=== PATIENT | female | born 1980 | race Caucasian/White ===

== ENCOUNTER 2017-03-11 16:35 | Inpatient (IN) | payer OTHER ==
[~2017-03-11] VITALS: Ht 162.6 cm; Wt 73.5 kg
--- NOTE | 2017-03-11 17:05 | History & Physical ---
General Information and HPI MD Statement: I have seen and personally examined SALLY KWONG and documented this H&P. The patient is a 36 year old female at [38] weeks and [6] days gestation who presented with a chief complaint of [ 6 cm dilated and ctxs]. Source of Information: patient Exam Limitations: no limitations History of Present Illness: 36yo, 38 6/7wks, she was seen in office today, was found cervix was 6 cm dialted. pt c/o she ahd some ctxs, but not regular. reports +FM, BPP 04/05 today. care started at 8+ wks, she had short cervix in the 2nd trimester, she received course of steroids. elevated GCT, normal GTT. GBS positive. Allergies/Medications Allergies: Coded Allergies: No Known Allergies (03/11/17) Past History nursing techn History : 2 Para: 1 Last Menstrual Period: 06/12/2016 Estimated Delivery Date: 03/19/2017 Past nursing techn History: non-contributory Past Pregnancies Past Pregnancies: Date of Delivery: 11/09/2011 Gestational Age: 39wks Weight: 6lb9oz Type of Delivery: vaginal Complications: none Medical History Blood Transfusion Hx: No Neurological: NONE EENT: NONE Cardiovascular: NONE Respiratory: NONE Gastrointestinal: NONE Hepatic: NONE Renal: NONE Musculoskeletal: NONE Psychiatric: NONE Endocrine: NONE Blood Disorders: NONE Cancer(s): NONE TUR[employer]IC/Reproductive: NONE Surgical History Pertinent Surgical History: none Past Family/Social History Psychosocial History Where do you live? Home Who Do You Live With? spouse, child Smoking Status: Never Smoked ETOH Use: denies use Illicit Drug Use: denies illicit drug use Review of Systems Review of Systems Constitutional: Reports: no symptoms. EENTM: Reports: no symptoms. Cardiovascular: Reports: no symptoms. Respiratory: Reports: no symptoms. GI: Reports: no symptoms. Genitourinary: Reports: no symptoms. Musculoskeletal: Reports: no symptoms. Skin: Reports: no symptoms. Neurological/Psychological: Reports: no symptoms. Hematologic/Endocrine: Reports: no symptoms. Immunologic/Allergic: Reports: no symptoms. All Other Systems: Reviewed and Negative Date of LMP: 06/12/16 Post Menopausal: No Exam & Diagnostic Data Obstetric Exam Wgt Gained During : 34LBS Pelvimetry: adequate Dilation (cm): 6 Effacement (%): 80 Station: -2 Membranes: intact Fluid: unknown Fundal Height (cm): 38 Multiple Gestation? No Contractions: q3-5 min #1 - FHR Baseline: 130 Category: 1 Estimated Weight: 3200g Presentation: vertex Patient for Induction? No Physical Exam: VSS general: NAD Abdomen: gravid, soft, nontender ext: DCT (-) Labs Blood Type & Rh: O negative Antibody Screen: negative Hct/Hgb & Platelets #1: 12.4/37.9%,PLT 521760 Hct/Hgb & Platelets #2: 10.5/30.6%,PLT [id number] Rubella: immune VDRL #1: negative VDRL #2: negative HbsAg: neagtive HIV #1: negative HIV #2 negative 1 Hr P 3 Hr P/179/153/122 Group B Strep: positive Initial Ultrasound: IUP at 8 wks 6 days Anatomy Ultrasound: normal Genetic Testing: normal Last 24 Hrs of Labs/Saroj: Laboratory Tests 03/11/17 1655: CBC w Diff Pending, WBC Pending, RBC Pending, Hgb Pending, Hct Pending, MCV Pending, MCH Pending, RDW Pending, Plt Count Pending, MPV Pending, PUBS MCHC Pending Assessment/Plan Assessment/Plan: 36yo, 38 6/7wks, labor 1. admit pt, admission labs 2. antibiotics for GBS prophylaxis 3. pain management as needed 4. montor closely As Ranked By This Provider Problem List: 1. 2. AMA (advanced maternal age) multigravida 35+ Core Measures/Miscellaneous Venous Thromboembolism VTE Risk Factors: / VTE Contraindications: No Contraindications VTE Diagnosis: No Beta Marci Is Beta Marci a Home Med? No Antibiotics Is Patient on Antibiotics? No Attending MD Review Statement Attending Statement Attending MD Statement: examined this patient, discussed with family, discussed w/nursing
[2017-03-11 17:34] LABS: ABSOLUTE BASOPHIL COUNT 0 /CUMM (0.0-0.2); ABSOLUTE EOSINOPHIL COUNT 0 /CUMM (0.0-0.7); ABSOLUTE GRANULOCYTE CT 8.7 /CUMM (1.4-6.5); ABSOLUTE LYMPH COUNT 2.3 /CUMM (1.2-3.4); BASOPHIL % 0.2 % (0.0-2.0); EOSINOPHIL % 0.3 % (0-5); GRANULOCYTE % 72.3 % (42.2-75.2); HEMATOCRIT 36.4 % (37-47); MEAN CORPUSCULAR HGB CONC 33.7 G/DL (33.0-37.0); MEAN PLATELET VOLUME 6.7 FL (7.4-10.4); PLATELET COUNT 396 /CUMM (130-400); RBC DISTRIBUTION WIDTH 13.6 % (11.5-14.5); RED BLOOD CELL CT 3.95 /CUMM (4.20-5.40)
[2017-03-11 21:22] VITALS: BP 113/56
--- NOTE | 2017-03-11 21:55 | PN- OBGYN ---
Surgical Brief Attending Note Brief Attending Note: pt c/o feels ctxs, not request pain management. pt received 2 doses of PCN on TOCO: ctxs q3-5min, FHR baseline 130, cat.I cervix 6cm/80%/-2, AROM, clear fluid will monitor closely
--- NOTE | 2017-03-11 23:53 | Labor & Delivery Summary ---
Delivery Summary Vaginal Delivery: Vaginal: vertex Episiotomy/Lacerations: Episiotomy/Lacerations: 2nd degree Type: Second degree Repair: 3-0 Vicryl Anesthesia: Local Placenta: Placenta: spontanteous, normal, 3 vessel Anesthesia: local Baby's Weight: Pending Apgars - 1 Min: 9 Apgars - 5 Min: 9 Additional Comments: Patient fully dilated, pushed well, spontaneously delivered a live male as cephalic , hand compound presentation, head delivered atraumatically, followed by shoulder and rest of the body without difficulties, baby vigorous and crying, placed on mother's chest, cord clamp and cut. Placenta delivered spontaneously, intact, three-vessel cord. Small second-degree laceration repaired under local anesthesia. Patient tolerated the procedure well, sponge lap needle counts are correct. Patient in recovery room in stable condition.
--- NOTE | 2017-03-12 08:36 | PN- OBGYN ---
Surgical Brief Attending Note Brief Attending Note: PPD#1 pt is ambulating, no complaints, tolerate diet, void without difficulties. PE: VSS CV RRR Lungs CTA B/L Abdomen: soft, nontender, uterus firm, fundus below umbilicus. lochia mild Ext: DCT (-) A/P: 36yo, s/p , PPD #1 1. encourage ambulation and 2. RT PP care
[2017-03-12 09:12] LABS: ABSOLUTE BASOPHIL COUNT 0 /CUMM (0.0-0.2); ABSOLUTE EOSINOPHIL COUNT 0 /CUMM (0.0-0.7); ABSOLUTE MONOCYTE COUNT 1.2 /CUMM (0.10-0.60); BASOPHIL % 0.1 % (0.0-2.0); EOSINOPHIL % 0.1 % (0-5); MEAN PLATELET VOLUME 6.8 FL (7.4-10.4)
[2017-03-12 09:36] LABS: GRANULOCYTE % 82.6 % (42.2-75.2); HEMATOCRIT 34.3 % (37-47); MEAN CORPUSCULAR HGB 31.1 PG (27.0-31.0); MEAN CORPUSCULAR HGB CONC 33.7 G/DL (33.0-37.0); MEAN CORPUSCULAR VOLUME 92.5 FL (81.0-99.0); PLATELET COUNT 361 /CUMM (130-400); RBC DISTRIBUTION WIDTH 13.8 % (11.5-14.5); RED BLOOD CELL CT 3.71 /CUMM (4.20-5.40)
[2017-03-12 09:54] LABS: WHITE BLOOD CELL COUNT 18.1 /CUMM (4.8-10.8)
[2017-03-13] MEDS ORDERED: IBUPROFEN800 M1 PO (09:12)
--- NOTE | 2017-03-13 09:21 | PN- OBGYN ---
Surgical Brief Attending Note Brief Attending Note: PPD#2 pt is resting in bed, no complaints. PE: VSS General: NAD abdomen: soft, nontender, uterus firm, fundus below umbilicus. lochia mild. Ext: DCT (-) A/P: 36yo, s/p , PPD #2 1. encourage ambulation and . 2. RT PP care 3.will d/c home, f/u in office in 2wks and 6 wks. precautions given, she understand.
== END 2017-03-13 13:00 | DRG 775 ==
LOC: GNO 16:35
PROVIDERS: ADMIT Obstetrics & Gynecology
PROC: 0KQM0ZZ Repair Perineum Muscle, Open Approach (ICD-10-PCS; principal; 2017-03-11)
PROC: 10E0XZZ Delivery of Products of Conception, External Approach (ICD-10-PCS; 2017-03-11)
DX: O70.1 Second degree perineal laceration during delivery (principal); Z37.0 Single live birth; O99.824 Streptococcus B carrier state complicating childbirth; O09.523 Supervision of elderly multigravida, third trimester; Z3A.38 38 weeks gestation of pregnancy
CPT/HCPCS: GNOP; GNOS; 81001; 86920; 86922; J1885; J2210; J7120